=== PATIENT | male | born 1975 | race Caucasian/White ===

== ENCOUNTER 2018-08-04 15:18 | Emergency (ER) | payer SELFPAY ==
[~2018-08-04] VITALS: Ht 162.6 cm; Wt 68.0 kg
[2018-08-04 15:22] VITALS: BP 119/82
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
[2018-08-04] MEDS ORDERED: Bacitracin Oint UD TOPIC ONE (15:45)
[2018-08-04 15:49] VITALS: BP 161/76
== END 2018-08-05 00:16 | disposition home or self-care (01) ==
LOC: EMR 15:42
DX: S30.810A Abrasion of lower back and pelvis, initial encounter (principal); S00.81XA Abrasion of other part of head, initial encounter; S00.01XA Abrasion of scalp, initial encounter; Y04.0XXA Assault by unarmed brawl or fight, initial encounter; Y92.9 Unspecified place or not applicable
CPT/HCPCS: 99282